=== PATIENT | male | born 1960 | race Caucasian/White ===

== ENCOUNTER → 2021-01-21 07:42 | Outpatient (CLI) | payer BC, SELFPAY ==
--- NOTE | ~2021-01-21 | MR_ITS ---
EXAMINATION: MR knee RT wo con DATE: 01/21/2021 08:31 INDICATION: Chronic right knee pain TECHNIQUE: Magnetic resonance imaging (MRI) of the right knee was performed without intravenous contr ast. Sequences included coronal PD-weighted FSE, coronal PD-weighted FS FSE, sagittal T2-weighted FS E, sagittal PD-weighted FS FSE and axial PD weighted fat saturated FSE. COMPARISON: None. FINDINGS: Medial compartment: Complex tear of the body and posterior horn of the medial meniscus. There is subluxation of a small m eniscal flap at the periphery of the meniscal body which extends inferiorly into the gutter along the medial rim of the medial tibial plateau. The posterior horn is small with irregular margins and with displacement of a larger meniscal flap which is flipped cephalad into the posterior aspect of the in tratrochanteric notch along the lateral margin of the central weightbearing medial femoral condyle. Prominent subarticular edema underlying a substantial portion of the anterior to central weightbearin g medial femoral condyle with linear low signal intensity just deep to the articular cortex suggestiv e of subarticular stress fracture likely related to altered stress distribution resulting from the me niscal tear. There is some deep chondral fissuring along the medial and lateral margins of the affect ed region of the anterior weightbearing medial femoral condyle. Diffuse mild partial-thickness cartil age loss throughout the weightbearing medial femoral condyle and medial tibial plateau with otherwise smooth chondral surface. Lateral compartment: Lateral meniscus is normal. Small region of mild chondral fissuring at the posterior medial aspect of the lateral tibial plateau. Normal cartilage along the weightbearing lateral femoral condyle. Patellofemoral compartment: A couple small foci of mild increased subarticular marrow signal underlying a deep chondral fissure e xtending across the lateral patellar facet. Trochlear cartilage is normal. Ligaments and tendons: Anterior and posterior cruciate ligaments are normal. The medial collateral ligament and fibular betty ateral ligament complex are normal. The extensor mechanism is normal. The visualized medial and later al hamstring tendons as well as the iliotibial band are normal. Fluid: Small knee joint effusion. No loose osteochondral bodies identified. There is a small medial plical b and at the suprapatellar pouch which does not extend across the medial rim of the medial trochlea. Pr epatellar edema without discrete bursal fluid collection. IMPRESSION: 1. Complex medial meniscal tear with displaced meniscal flaps. 2. Nondisplaced subarticular likely stress fracture along the anterior weightbearing medial femoral c ondyle which may be secondary to altered stress distribution resulting from the meniscal tear. 3. Mild patellofemoral and medial compartment osteoarthritis with regions of deep fissuring at the pa tella and anterior weightbearing medial femoral condyle. Reviewed, dictated and finalized at location B. I [employer] IMPRESSION: 1. Complex medial meniscal tear with displaced meniscal flaps. 2. Nondisplaced subarticular likely stress fracture along the anterior weightbe aring medial femoral condyle which may be secondary to altered stress distribut ion resulting from the meniscal tear. 3. Mild patellofemoral and medial compartment osteoarthritis with regions of de ep fissuring at the patella and anterior weightbearing medial femoral condyle.
== END ==
PROVIDERS: Visit Provider Orthopaedic Surgery
DX: M17.11 Unilateral primary osteoarthritis, right knee (principal); S83.231A Complex tear of medial meniscus, current injury, right knee, initial encounter; X58.XXXA Exposure to other specified factors, initial encounter
CPT/HCPCS: 73721

== ENCOUNTER → 2021-05-18 07:59 | Outpatient (CLI) | payer BC, SELFPAY ==
--- NOTE | ~2021-05-18 | MR_ITS ---
EXAMINATION: MR knee RT wo con DATE: 05/18/2021 08:32 INDICATION: Chronic right knee pain TECHNIQUE: Magnetic resonance imaging (MRI) of the right knee was performed without intravenous contr ast. Sequences included coronal PD-weighted FSE, coronal PD-weighted FS FSE, sagittal T2-weighted FS E, sagittal PD-weighted FS FSE and axial PD weighted fat saturated FSE. COMPARISON: None. FINDINGS: Medial compartment: Complex medial meniscal tear involving the body and posterior horn. Subarticular fracture involving a n ovoid region of the anterior to central weightbearing medial femoral condyle measuring 2.2 cm AP an d 1.2 cm medial to lateral. There is <1 mm depression and associated chondral fissure involving the l ateral margin of the fracture fragment. Mild partial-thickness cartilage loss with minimal scattered chondral surface irregularity along portions of the medial and posterior aspect medial tibial plateau and along the weightbearing medial femoral condyle. Lateral compartment: Lateral meniscus is normal. Articular cartilage is normal. Patellofemoral compartment: There is a band of full thickness chondral fissuring extending transversely across the lateral patell ar facet with underlying and increased subarticular edema-like marrow signal change. Trochlear cartil age is normal. Ligaments and tendons: Anterior and posterior cruciate ligaments are normal. The medial collateral ligament and fibular betty ateral ligament complex are normal. Mild distal quadriceps tendinopathy. The patellar tendon is johnathan l. The visualized medial and lateral hamstring tendons as well as the iliotibial band are normal. Fluid: Physiologic amount of fluid in the joint space. No loose osteochondral bodies identified. Osseous/other: Marrow edema at the medial femoral condyle surrounding the previously noted subarticular fracture. No other fractures identified. Additional mild osteoarthritis at the proximal tibiofibular articulation . No pathologic marrow replacing process. IMPRESSION: 1. Complex medial meniscal tear. 2. Negligible depression of nondisplaced subarticular fracture involving portions of the anterior to central weightbearing medial femoral condyle. 3. 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 Reviewed, dictated and finalized at location B. IMPRESSION: 1. Complex medial meniscal tear. 2. Negligible depression of nondisplaced subarticular fracture involving portio ns of the anterior to central weightbearing medial femoral condyle. 3. Mild medial and patellofemoral osteoarthritis most notable for a band of hig h-grade chondromalacia extending across the lateral patellar facet.
== END ==
PROVIDERS: PCP Internal Medicine; Visit Provider Orthopaedic Surgery
DX: M17.11 Unilateral primary osteoarthritis, right knee (principal); S83.231A Complex tear of medial meniscus, current injury, right knee, initial encounter; X58.XXXA Exposure to other specified factors, initial encounter
CPT/HCPCS: 73721

== ENCOUNTER → 2021-09-18 07:14 | Outpatient (CLI) | payer BC, SELFPAY ==
--- NOTE | ~2021-09-18 | MR_ITS ---
EXAMINATION: MR knee RT wo con DATE: 09/18/2021 07:52 INDICATION: Right knee pain. TECHNIQUE: Magnetic resonance imaging (MRI) of the right knee was performed without intravenous contr ast. Sequences included axial PD-weighted FS FSE, coronal PD-weighted FSE and PD-weighted FS FSE, sag ittal PD-weighted FSE, and sagittal T2-weighted FS FSE. COMPARISON: Right knee MRI 05/18/2021 FINDINGS: Medial compartment: There is a complex tear involving body and posterior horn of medial meniscus. There is partial-thickn ess cartilage loss of tibial condyle, deep at the medial articular surface where there is mild subcho ndral edema-like marrow signal intensity. There is shallow partial-thickness cartilage loss of femora l condyle. There is a subchondral fracture of medial femoral condyle involving the central articular surface with 1 mm cortical depression and subchondral sclerosis and edema. Osteophytes are noted. Lateral compartment: Lateral meniscus is normal. There is cartilage surface irregularity of femoral condyle involving the posterior articular surface. Tibial cartilage is normal. Patellofemoral compartment: There is deep cartilage fissuring of patellar lateral facet with mild subchondral edema-like marrow s ignal intensity. Trochlear cartilage is normal. Ligaments and tendons: The anterior and posterior cruciate ligaments are normal. The collateral ligament and lateral collate ral ligament complex are normal. There is mild patellar tendinopathy. Fluid: There is a small knee joint effusion. There is mild prepatellar and superficial infrapatellar bursiti s. There is trace fluid in a Jacobsen's cyst. IMPRESSION: 1. Stable subchondral insufficiency fracture of medial femoral condyle. 2. Moderate chondrosis of medial and patellofemoral compartments and mild chondrosis of lateral patricia rtment. 3. Complex tear of medial meniscus. 4. Small knee joint effusion. Reviewed, dictated and finalized at location A. IMPRESSION: 1. Stable subchondral insufficiency fracture of medial femoral condyle. 2. Moderate chondrosis of medial and patellofemoral compartments and mild chond rosis of lateral compartment. 3. Complex tear of medial meniscus. 4. Small knee joint effusion.
== END ==
PROVIDERS: PCP Internal Medicine; Visit Provider Orthopaedic Surgery
DX: M17.11 Unilateral primary osteoarthritis, right knee (principal); S83.231A Complex tear of medial meniscus, current injury, right knee, initial encounter; X58.XXXA Exposure to other specified factors, initial encounter; M25.461 Effusion, right knee
CPT/HCPCS: 73721